=== PATIENT | male | born 1995 | race Caucasian/White ===

== ENCOUNTER 2017-02-12 00:11 | Emergency (ER) | payer SELFPAY ==
[~2017-02-12] VITALS: Ht 167.6 cm; Wt 86.7 kg
[2017-02-12 03:57] VITALS: BP 137/94
== END 2017-02-12 05:32 | disposition left against medical advice (07) ==
LOC: ER 00:12
DX: R42 Dizziness and giddiness (principal); F17.200 Nicotine dependence, unspecified, uncomplicated